=== PATIENT | male | born 1955 ===

== ENCOUNTER 2018-08-09 23:00 | Observation (INO) | payer MEDICAID ==
[2018-08-09 23:17] VITALS: BMI 27.1
--- NOTE | 2018-08-09 23:18 | ED PDOC ---
Arrival/HPI - General Historian: Patient - History of Present Illness Narrative History of Present Illness (Text): 08/09/18 23:43 Patient is a 65 yo male with a history of T2DM, arthritis, and gout who presents with vomiting and black stool. Patient states that he vomited 3 times today, most recently about 1 hour ago. He says the vomit was red but says it did not smell or taste like blood. He notes drinking a glass of wine and 2 red sodas prior to vomiting. He also reports 2 episodes of black stools today. He says that this occurred after eating [place] food with black sauce. Patient says he felt nauseated prior to vomiting and then felt better afterwards. He last took an NSAID (ibuprofen) for his arthritis 4 days ago). He reports having a colonoscopy in 2016 and is supposed to have another one in March 2019. He says he only drinks alcohol every few weekends. He now is feeling generalized weakness. He currently denies fever, headache, lightheadedness, nausea, abdominal pain, and rectal pain. He denies any sick contacts. Time/Duration: 4-6 hours Symptom Onset: Sudden <Kristin Zheng - Last Filed: 08/10/18 01:43> - Critical Care Critical Care Minutes: 30 minutes - History of Present Illness Activities at Onset: Light <Nestor Dumont - Last Filed: 08/10/18 02:28> - General Chief Complaint: GI Problem Time Seen by Provider: 08/09/18 23:05 Past Medical History - Provider Review Nursing Documentation Reviewed: Yes Primary Care Provider: Eleno Pringle <Kristin Zheng - Last Filed: 08/10/18 01:43> Family/Social History Family/Social History: Unknown Family HX Smoking Status: Never Smoked Hx Alcohol Use: Yes Frequency of alcohol use: Socially Hx Substance Use: No <Kristin Zheng - Last Filed: 08/10/18 01:43> - Physician Review Nursing Documentation Reviewed: Yes <Nestor Dumont - Last Filed: 08/10/18 02:28> Allergies/Home Meds <Kristin Zheng - Last Filed: 08/10/18 01:43> <Nestor Dumont - Last Filed: 08/10/18 02:28> Allergies/Adverse Reactions: Allergies No Known Allergies Allergy (Verified 08/09/18 23:17) Home Medications: Home Meds Medication Instructions Recorded Confirmed Unobtainable 08/09/18 08/09/18 Review of Systems - Review of Systems Constitutional: Other (weakness). absent: Fatigue, Fevers Eyes: absent: Vision Changes ENT: absent: Hearing Changes, Tinnitus Respiratory: absent: SOB, Cough Cardiovascular: absent: Chest Pain, Palpitations Gastrointestinal: Diarrhea, Nausea, Vomiting, Hematochezia. absent: Abdominal Pain, Constipation Genitourinary Male: absent: Dysuria, Hematuria Musculoskeletal: Arthralgias Skin: absent: Rash, Pruritis, Skin Lesions Neurological: absent: Headache, Dizziness, Focal Weakness Endocrine: absent: Diaphoresis Hemo/Lymphatic: absent: Adenopathy <Kristin Zheng - Last Filed: 08/10/18 01:43> - Physician Review All systems were reviewed & negative as marked: Yes <Nestor Dumont - Last Filed: 08/10/18 02:28> Physical Exam Vital Signs Reviewed: Yes Temperature: Afebrile Blood Pressure: Hypertensive Pulse: Tachycardic Respiratory Rate: Normal Appearance: Positive for: Non-Toxic, Comfortable Pain Distress: None Mental Status: Positive for: Alert and Oriented X 3 - Systems Exam Head: Present: Atraumatic, Normocephalic Pupils: Present: PERRL Extroacular Muscles: Present: EOMI Conjunctiva: Present: Normal Mouth: Present: Moist Mucous Membranes Pharnyx: Present: Normal Respiratory/Chest: Present: Clear to Auscultation, Good Air Exchange Cardiovascular: Present: Normal S1, S2, Tachycardic Abdomen: Present: Normal Bowel Sounds. No: Tenderness, Distention, Peritoneal Signs Rectal: Present: Occult Blood, Normal Rectal Tone. No: Rectal Tenderness, Gross Blood, Hemorrhoids, Fissures, Nodule/Mass/Lesions Back: Present: Normal Inspection Upper Extremity: Present: Normal Inspection Lower Extremity: Present: Normal Inspection Neurological: Present: GCS=15, CN II-XII Intact, Speech Normal, Motor Func Grossly Intact, Normal Sensory Function Skin: Present: Warm, Dry, Normal Color Psychiatric: Present: Alert, Oriented x 3, Normal Insight, Normal Concentration, Normal Affect, Normal Mood <Kristin Zheng - Last Filed: 08/10/18 01:43> Vital Signs Temp Pulse Resp BP Pulse Ox 08/10/18 00:50 132 H 18 123/58 L 98 08/09/18 23:27 98.1 F 107 H 20 136/84 95 08/09/18 23:19 102 H 18 155/60 H 97 <Nestor Dumont - Last Filed: 08/10/18 02:28> Medical Decision Making ED Course and Treatment: 08/09/18 23:43 FOBT positive 08/09/18 23:49 EKG, CXR Labs 08/10/18 00:49 Code sepsis- tachycardia, leukocytosis, elevated lactate 08/10/18 01:09 Spoke to hospitalist, Dr. Roca, who accepts patient for admission. - Lab Interpretations I have reviewed the lab results: Yes Interpretation: Abnormal lab values - RAD Interpretation Narrative RAD Interpretations (Text): 08/09/18 23:55 CXR- poor inspiratory effort, unremarkable Simplex Printer Installer: ED Physician - EKG Interpretation EKG Interpretation (Text): 08/09/18 23:27 sinus tachycardia Interpreted by ED Physician: Yes Type: 12 lead EKG Comparison: No previous EKG avail. - Medication Orders Current Medication Orders: 08/09/18 23:53 Discontinued Medications Ondansetron HCl (Zofran Inj) 4 mg IVP STAT STA Stop: 08/09/18 23:37 Last Admin: 08/09/18 23:48 Dose: 4 mg IVP Administration Document 08/09/18 23:48 IT (Rec: 08/09/18 23:[address] [facility] [id number]) Charges for Administration # of IVP Administrations 1 Pantoprazole Sodium (Protonix Inj) 40 mg IVP STAT STA Stop: 08/09/18 23:37 Last Admin: 08/09/18 23:48 Dose: 40 mg IVP Administration Document 08/09/18 23:48 IT (Rec: 08/09/18 23:[address] [facility] [id number]) Charges for Administration # of IVP Administrations 1 08/10/18 00:50 Sodium Chloride (Sodium Chloride 0.9%) 1,000 mls @ 999 mls/hr IV .Q1H1M STA Stop: 08/10/18 01:11 Sodium Chloride (Sodium Chloride 0.9%) 1,000 mls @ 999 mls/hr IV .Q1H1M STA Stop: 08/10/18 01:11 Last Admin: 08/10/18 00:21 Dose: 999 mls/hr eMAR Start Stop Document 08/10/18 00:21 IT (Rec: 08/10/18 00:[address] [facility] [id number]) Intravenous Solution Start Date 08/10/18 Start Time 00:21 Vancomycin HCl (Vancomycin 1gm) 1 gm in 250 mls @ 167 mls/hr IVPB STAT STA; Protocol Stop: 08/10/18 02:17 Piperacillin Sod/Tazobactam Sod (Zosyn 3.375 In Ns 100ml) 100 mls @ 200 mls/hr IVPB STAT STA; Protocol Stop: 08/10/18 01:17 Discontinued Medications Ondansetron HCl (Zofran Inj) 4 mg IVP STAT STA Stop: 08/09/18 23:37 Last Admin: 08/09/18 23:48 Dose: 4 mg IVP Administration Document 08/09/18 23:48 IT (Rec: 08/09/18 23:[address] [facility] [id number]) Charges for Administration # of IVP Administrations 1 Pantoprazole Sodium (Protonix Inj) 40 mg IVP STAT STA Stop: 08/09/18 23:37 Last Admin: 08/09/18 23:48 Dose: 40 mg IVP Administration Document 08/09/18 23:48 IT (Rec: 08/09/18 23:48 [facility] [id number] Charges for Administration # of IVP Administrations 1 <Kristin Zheng - Last Filed: 08/10/18 01:43> ED Course and Treatment: Patient Seen with Resident: In agreement with resident note which contains more details about the patient. Patient seen and evaluated with resident. Came up with plan and treatment together. 65 year old female presents complaining of vomiting and black stool. Plan: -- Labs -- EKG -- Chest X-ray -- Protonix Inj, IV Fluids, Vancomycin, Zofran Inj, Piperacillin/Tazobact -- Blood CUlture -- Stool Culture -- Urinalysis -- Reassess/dispo - Lab Interpretations Lab Results: pO2 46 mm/Hg (30-55) 08/10/18 00:25 VBG pH 7.38 (7.32-7.43) 08/10/18 00:25 VBG pCO2 48.0 (40-60) 08/10/18 00:25 VBG HCO3 28.4 mmol/l (21-28) H 08/10/18 00:25 VBG Total CO2 29.9 mmol.L (22-28) H 08/10/18 00:25 VBG O2 Sat (Calc) 82.1 % (40-65) H 08/10/18 00:25 VBG Base Excess 2.5 mmol/L (0.0-2.0) H 08/10/18 00:25 VBG Potassium 4.6 mmol/L (3.6-5.2) 08/10/18 00:25 Sodium 141.0 mmol/L (132-148) 08/10/18 00:25 Chloride 106.0 mmol/L (98-107) 08/10/18 00:25 Glucose 221 mg/dl (75-110) H 08/10/18 00:25 Lactate 2.7 mmol/L (0.7-2.1) H 08/10/18 00:25 FiO2 21.0 % 08/10/18 00:25 Crit Value Called To Tammie gonzalez 08/10/18 00:25 Crit Value Called By Helen 08/10/18 00:25 Blood Gas Notified Time 35 08/10/18 00:25 PT 14.3 SECONDS (9.4-12.5) H 08/09/18 23:27 INR 1.29 08/09/18 23:27 APTT 32.8 Seconds (26.9-38.3) 08/09/18 23:27 Troponin I < 0.01 ng/mL 08/10/18 00:13 Total Bilirubin 0.9 mg/dL (0.2-1.3) 08/09/18 23:27 AST 34 U/L (17-59) 08/09/18 23:27 ALT 29 U/L (7-56) 08/09/18 23:27 Alkaline Phosphatase 54 U/L (38-126) 08/09/18: Total Protein 7.6 g/dL (5.8-8.3) 08/09/18 23:27 Albumin 4.2 g/dL (3.0-4.8) 08/09/18: Globulin 3.4 gm/dL 08/09/18:27 Albumin/Globulin Ratio 1.3 (1.1-1.8) 08/09/18 23:27 Lipase 197 U/L (23-300) 08/09/18 23:27 Urine Color Yellow (YELLOW) 08/10/18 01:05 Urine Appearance Clear (CLEAR) 08/10/18 01:05 Urine pH 6.0 (4.7-8.0) 08/10/18 01:05 Ur Specific [place] 1.010 (1.005-1.035) 08/10/18 01:05 Urine Protein Negative mg/dL (<30 mg/dL) 08/10/18 01:05 Urine Glucose (UA) 100 mg/dL (NEGATIVE) H 08/10/18 01:05 Urine Ketones 15 mg/dL (NEGATIVE) H 08/10/18 01:05 Urine Blood Negative (NEGATIVE) 08/10/18 01:05 Urine Nitrate Negative (NEGATIVE) 08/10/18 01:05 Urine Bilirubin Negative (NEGATIVE) 08/10/18 01:05 Urine Urobilinogen 0.2 E.U./dL (<1 E.U./dL) 08/10/18 01:05 Ur Leukocyte Esterase Negative Erika/uL (NEGATIVE) 08/10/18 01:05 - RAD Interpretation Radiology Orders: 08/09/18 23:19 CXR [CHEST PORTABLE] [RAD] Stat - Medication Orders Current Medication Orders: Vancomycin HCl (Vancomycin 1gm) 1 gm in 250 mls @ 167 mls/hr IVPB STAT STA; Protocol Stop: 08/10/18 02:17 Last Admin: 08/10/18 01:37 Dose: 167 mls/hr eMAR Start Stop Document 08/10/18 01:37 IT (Rec: 08/10/18 01:[address] [facility] [id number]) Intravenous Solution Start Date 08/10/18 Start Time 01:37 Sodium Chloride (Sodium Chloride 0.9%) 1,000 mls @ 100 mls/hr IV .Q10H ILANA Discontinued Medications Sodium Chloride (Sodium Chloride 0.9%) 1,000 mls @ 999 mls/hr IV .Q1H1M STA Stop: 08/10/18 01:11 Last Admin: 08/10/18 01:04 Dose: 999 mls/hr eMAR Start Stop Document 08/10/18 01:04 IT (Rec: 08/10/18 01:04 IT [id number]) Intravenous Solution Start Date 08/10/18 Start Time 01:04 Sodium Chloride (Sodium Chloride 0.9%) 1,000 mls @ 999 mls/hr IV .Q1H1M STA Stop: 08/10/18 01:11 Last Admin: 08/10/18 00:21 Dose: 999 mls/hr eMAR Start Stop Document 08/10/18 00:21 IT (Rec: 08/10/18 00:21 IT [id number]) Intravenous Solution Start Date 08/10/18 Start Time 00:21 Piperacillin Sod/Tazobactam Sod (Zosyn 3.375 In Ns 100ml) 100 mls @ 200 mls/hr IVPB STAT STA; Protocol Stop: 08/10/18 01:17 Last Admin: 08/10/18 01:04 Dose: 200 mls/hr eMAR Start Stop Document 08/10/18 01:04 IT (Rec: 08/10/18 01:04 IT [id number]) Intravenous Solution Start Date 08/10/18 Start Time 01:04 Sodium Chloride (Sodium Chloride 0.9%) 500 mls @ 999 mls/hr IV .Q31M STA Stop: 08/10/18 01:43 Last Admin: 08/10/18 01:45 Dose: 999 mls/hr eMAR Start Stop Document 08/10/18 01:45 IT (Rec: 08/10/18 01:45 IT [id number]) Intravenous Solution Start Date 08/10/18 Start Time 01:45 Ondansetron HCl (Zofran Inj) 4 mg IVP STAT STA Stop: 08/09/18 23:37 Last Admin: 08/09/18 23:48 Dose: 4 mg IVP Administration Document 08/09/18 23:48 IT (Rec: 08/09/18 23:48 IT [id number]) Charges for Administration # of IVP Administrations 1 Pantoprazole Sodium (Protonix Inj) 40 mg IVP STAT STA Stop: 08/09/18 23:37 Last Admin: 08/09/18 23:48 Dose: 40 mg IVP Administration Document 08/09/18 23:48 IT (Rec: 08/09/18 23:48 IT [id number]) Charges for Administration # of IVP Administrations 1 Nestor Bermudez - Last Filed: 08/10/18 02:28> - PA / DRAFTING INSTRUCTOR / Resident Statement / has reviewed & agrees with the documentation as recorded. MD/ has examined the patient and agrees with the treatment plan. - Scribe Statement The provider has reviewed the documentation as recorded by the Alphonseibpritesh Mccullough Provider Scribe Attestation: All medical record entries made by the Scribe were at my direction and personally dictated by me. I have reviewed the chart and agree that the record accurately reflects my personal performance of the history, physical exam, medical decision making, and the department course for this patient. I have also personally directed, reviewed, and agree with the discharge instructions and disposition. <Nestor Dumont - Last Filed: 08/10/18 02:28> Disposition/Present on Arrival - Present on Arrival Any Indicators Present on Arrival: No History of DVT/PE: No History of Uncontrolled Diabetes: No Urinary Catheter: No History of Decub. Ulcer: No History Surgical Site Infection Following: None - Disposition Have Diagnosis and Disposition been Completed?: Yes Disposition Time: 01:06 Patient Plan: Observation, Telemetry <Kristin Zheng - Last Filed: 08/10/18 01:43> <Nestor Dumont - Last Filed: 08/10/18 02:28> - Disposition Diagnosis: Sepsis, GI bleed Disposition: HOSPITALIZED Patient Problems: Current Active Problems Problem Status Onset GI bleed Acute Sepsis Acute Condition: GUARDED
[2018-08-10] LABS: BASO # 0.05 K/mm3 (0.0-2.0); BASO % 0.4 % (0.0-3.0); EOS # 0.4 (0.0-0.7); EOS % 2.8 % (1.5-5.0); HEMOGLOBIN 13.1 g/dL (14.0-18.0); LYMPH # 1.9 (1.2-3.4); LYMPH % 15.3 % (22.0-35.0); MEAN CELL VOLUME 90.9 fl (80.0-105.0); MEAN CORPUSCULAR HEMOGLOBIN 29.9 pg (25.0-35.0); MEAN CORPUSCULAR HGB CONC 32.9 g/dl (31.0-37.0); MEAN PLATELET VOLUME 11.8 fl (7.0-11.0); MONO # 0.5 (0.1-0.6); MONO % 4.2 % (1.0-6.0); RBC 4.38 10^6/uL (3.5-6.1); RED CELL DISTRIBUTION WIDTH 14.5 % (11.5-14.5); WHITE BLOOD COUNT 12.5 10^3/uL (4.5-11.0)
[2018-08-10 00:04] LABS: INR 1.29; PARTIAL THROMBOPLASTIN TIME 32.8 Seconds (26.9-38.3); PROTHROMBIN TIME 14.3 SECONDS (9.4-12.5)
[2018-08-10 00:05] LABS: ALB/GLOB RATIO 1.3 (1.1-1.8); ALBUMIN 4.2 g/dL (3.0-4.8); ALT/SGPT 29 U/L (7-56); AST/SGOT 34 U/L (17-59); BLOOD UREA NITROGEN 34 mg/dL (7-21); CALCIUM 9.6 mg/dL (8.4-10.5); GFR NON-AFRICAN AMERICAN > 60; LIPASE 197 U/L (23-300)
[2018-08-10] MEDS ORDERED: Sodium Chloride 0.9% 1,000 ML IV STA ×2 (00:11)
[2018-08-10 00:39] LABS: VENOUS BLOOD GAS BASE EXCESS 2.5 mmol/L (0.0-2.0); VENOUS BLOOD GAS PO2 46 mm/Hg (30-55); VENOUS BLOOD PH 7.38 (7.32-7.43)
[2018-08-10] MEDS ORDERED: Vancomycin 1gm in NS 250ml 1 GM/250 ML BAG IVPB STA (00:48)
[2018-08-10] MEDS ORDERED: Piperacillin/Tazobact 3.375 gm 100 ML IVPB STA (00:48)
[2018-08-10 00:51] LABS: TROPONIN I < 0.01 ng/mL
[2018-08-10] MEDS ORDERED: Sodium Chloride 0.9% 500 ML IV STA (01:13)
[2018-08-10] MEDS ORDERED: Sodium Chloride 0.9% 1,000 ML IV SCH ×2 (01:15→10:07)
[2018-08-10 01:35] LABS: URINE APPEARANCE CLEAR (CLEAR); URINE BILIRUBIN NEGATIVE (NEGATIVE); URINE BLOOD NEGATIVE (NEGATIVE); URINE COLOR YELLOW (YELLOW); URINE GLUCOSE (UA) 100 mg/dL (NEGATIVE); URINE LEUKOCYTE ESTERASE NEGATIVE Leu/uL (NEGATIVE); URINE PROTEIN NEGATIVE mg/dL (<30 mg/dL); URINE UROBILINOGEN 0.2 E.U./dL (<1 E.U./dL)
--- NOTE | 2018-08-10 02:02 | CP.PCM.HP ---
<Flor Emery - Last Filed: 08/10/18 06:33> History of Present Illness - History of Present Illness History of Present Illness: Flor Emery, PGY1 Hospital H&P This is a 62 year old male with PMH of arthritis, gout and type II DM presenting to the hospital for 2 episodes of vomiting and black tarry stool today afternoon. Patient states he was drinking soda and wine, and shortly after ret urning home he had a black tarry bowel movement. He then proceeded to self induce vomit after which vomited twice. He denies every having a black tarry bowel movement in the past. He states his bowel movements were regular and normal prior to earlier episode. He denies any other complaints at this time. He reports having a colonoscopy in 2017 and is unsure of the results. He denies CP, SOB, fevers, nausea, back pain, abdominal pain, diarrhea, constipation, numbness, tingling, weakness, chills, headaches, dizziness, recent travel, recent sickness, recent trauma, and recent lifestyle change including weight loss, medication change and diet. 12 point ROS noted here, otherwise unremarkable. PMD: Delvis Mendoza SH: drinks occasional alcohol, denies smoking and drug use Sx: denies previous surgeries FH: father had 2 CVA's All: NKDA Meds: indomethacin prn, diclofenic prn, metformin 500mg when fingerstick glucose elevated Present on Admission - Present on Admission Any Indicators Present on Admission: No Past Patient History - Past Social History Smoking Status: Never Smoked - ENDOCRINE/METABOLIC Hx Diabetes Mellitus Type 2: Yes - PSYCHIATRIC Hx Substance Use: No Meds Allergies/Adverse Reactions: Allergies Allergy/AdvReac Type Severity Reaction Status Date / Time No Known Allergies Allergy Verified 08/09/18 23:17 Physical Exam - Constitutional Appears: Non-toxic, No Acute Distress - Head Exam Head Exam: ATRAUMATIC, NORMAL INSPECTION - Eye Exam Eye Exam: EOMI Pupil Exam: PERRL - ENT Exam ENT Exam: Mucous Membranes Dry - Respiratory Exam Respiratory Exam: Clear to Auscultation Bilateral. absent: Accessory Muscle Use, Wheezes, Respiratory Distress - Cardiovascular Exam Cardiovascular Exam: Tachycardia, REGULAR RHYTHM, +S1, +S2 - GI/Abdominal Exam GI & Abdominal Exam: Normal Bowel Sounds, Soft. absent: Firm, Guarding, Rebound, Rigid, Tenderness - Extremities Exam Extremities exam: Positive for: normal inspection, pedal pulses present. Negati ve for: calf tenderness, tenderness - Back Exam Back exam: NORMAL INSPECTION - Neurological Exam Neurological exam: Alert, CN II-XII Intact, Oriented x3 - Skin Skin Exam: Normal Color, Warm Results - Vital Signs Recent Vital Signs: Last Vital Signs Temp 98.1 F 08/09/18 23:27 Pulse 132 H 08/10/18 00:50 Resp 18 08/10/18 00:50 BP 123/58 L 08/10/18 00:50 Pulse Ox 98 08/10/18 00:50 - Labs Result Diagrams: 08/09/18 23:27 08/10/18 05:00 Labs: Laboratory Results - last 24 hr 08/09/18 08/09/18 08/09/18 23:27 23:27 23:27 WBC 12.5 H RBC 4.38 Hgb 13.1 L Hct 39.8 L MCV 90.9 MCH 29.9 MCHC 32.9 RDW 14.5 Plt Count 192 MPV 11.8 H Neut % (Auto) 77.3 H Lymph % (Auto) 15.3 L Beaver % (Auto) 4.2 Eos % (Auto) 2.8 Baso % (Auto) 0.4 Lymph # (Auto) 1.9 Beaver # (Auto) 0.5 Eos # (Auto) 0.4 Baso # (Auto) 0.05 Absolute Neuts (auto) 9.68 H PT 14.3 H INR 1.29 APTT 32.8 pO2 VBG pH VBG pCO2 VBG HCO3 VBG Total CO2 VBG O2 Sat (Calc) VBG Base Excess VBG Potassium Glucose Lactate FiO2 Crit Value Called To Crit Value Called By Blood Gas Notified Time Sodium 142 Potassium 5.0 Chloride 106 Carbon Dioxide 26 Anion Gap 15 BUN 34 H Creatinine 0.7 L Est GFR ( Amer) > 60 Est GFR (Non-Af Amer) > 60 Random Glucose 260 H Calcium 9.6 Phosphorus 2.7 Magnesium 1.6 L Total Bilirubin 0.9 AST 34 ALT 29 Alkaline Phosphatase 54 Lactate Dehydrogenase Total Creatine Kinase Troponin I Total Protein 7.6 Albumin 4.2 Globulin 3.4 Albumin/Globulin Ratio 1.3 Lipase 197 Venous Blood Potassium Urine Color Urine Appearance Urine pH Ur Specific Lenore Urine Protein Urine Glucose (UA) Urine Ketones Urine Blood Urine Nitrate Urine Bilirubin Urine Urobilinogen Ur Leukocyte Esterase Blood Type Antibody Screen BBK History Checked 08/09/18 08/10/18 08/10/18 23:48 00:13 00:25 WBC RBC Hgb Hct MCV MCH MCHC RDW Plt Count MPV Neut % (Auto) Lymph % (Auto) Beaver % (Auto) Eos % (Auto) Baso % (Auto) Lymph # (Auto) [place] # (Auto) Eos # (Auto) Baso # (Auto) Absolute Neuts (auto) PT INR APTT pO2 46 VBG pH 7.38 VBG pCO2 48.0 VBG HCO3 28.4 H VBG Total CO2 29.9 H VBG O2 Sat (Calc) 82.1 H VBG Base Excess 2.5 H VBG Potassium 4.6 Glucose 221 H Lactate 2.7 H FiO2 21.0 Crit Value Called To Iqsa rn Crit Value Called By Djd Blood Gas Notified Time 35 Sodium 141.0 Potassium Chloride 106.0 Carbon Dioxide Anion Gap BUN Creatinine Est GFR ( Amer) Est GFR (Non-Af Amer) Random Glucose Calcium Phosphorus Magnesium Total Bilirubin AST ALT Alkaline Phosphatase Lactate Dehydrogenase 531 Total Creatine Kinase 142 Troponin I < 0.01 Total Protein Albumin Globulin Albumin/Globulin Ratio Lipase Venous Blood Potassium 4.6 Urine Color Urine Appearance Urine pH Ur Specific Len[place] Urine Protein Urine Glucose (UA) Urine Ketones Urine Blood Urine Nitrate Urine Bilirubin Urine Urobilinogen Ur Leukocyte Esterase Blood Type A POSITIVE Antibody Screen Negative BBK History Checked No verified bt 08/10/18 01:05 WBC RBC Hgb Hct MCV MCH MCHC RDW Plt Count MPV Neut % (Auto) Lymph % (Auto) Beaver % (Auto) Eos % (Auto) Baso % (Auto) Lymph # (Auto) [place] # (Auto) Eos # (Auto) Baso # (Auto) Absolute Neuts (auto) PT INR APTT pO2 VBG pH VBG pCO2 VBG HCO3 VBG Total CO2 VBG O2 Sat (Calc) VBG Base Excess VBG Potassium Glucose Lactate FiO2 Crit Value Called To Crit Value Called By Blood Gas Notified Time Sodium Potassium Chloride Carbon Dioxide Anion Gap BUN Creatinine Est GFR ( Amer) Est GFR (Non-Af Amer) Random Glucose Calcium Phosphorus Magnesium Total Bilirubin AST ALT Alkaline Phosphatase Lactate Dehydrogenase Total Creatine Kinase Troponin I Total Protein Albumin Globulin Albumin/Globulin Ratio Lipase Venous Blood Potassium Urine Color Yellow Urine Appearance Clear Urine pH 6.0 Ur Specific Len[place] 1.010 Urine Protein Negative Urine Glucose (UA) 100 H Urine Ketones 15 H Urine Blood Negative Urine Nitrate Negative Urine Bilirubin Negative Urine Urobilinogen 0.2 Ur Leukocyte Esterase Negative Blood Type Antibody Screen BBK History Checked Assessment & Plan - Assessment and Plan (Free Text) Assessment: This is a 62 year old male with PMH of arthritis, gout and type II DM presenting to the hospital for 2 episodes of vomiting and black tarry stool. Plan: SIRS with unknown source -tachycardic, elevated WBC count -lactate on presentation is 2.7 -continue vancomycin, zosyn -blood culture, urine culture, stool culture pending -CXR pending -guaiac positive in the ED, Hg is 13.1; monitor -H/H q4 -GI on consult, Dr. Bolaños -IV protonix q12 Hx of DM2 -ISS - low -A1c pending Hx of arthritis -symptoms currently controlled PPX -protonix -SCD -NPO Patient seen and case discussed with attending, Dr. Roca. <Moshe Roca - Last Filed: 08/11/18 02:32> Results - Vital Signs Recent Vital Signs: Last Vital Signs Temp 97.8 F 08/10/18 12:00 Pulse 120 H 08/10/18 12:00 Resp 20 08/10/18 12:00 BP 111/71 08/10/18 12:00 Pulse Ox 95 08/10/18 06:00 - Labs Result Diagrams: 08/10/18 12:15 08/10/18 05:00 Labs: Laboratory Results - last 24 hr 08/10/18 08/10/18 08/10/18 00:30 04:00 05:00 WBC RBC Hgb Hct MCV MCH MCHC RDW Plt Count MPV Neut % (Auto) Lymph % (Auto) Beaver % (Auto) Eos % (Auto) Baso % (Auto) Lymph # (Auto) [place] # (Auto) Eos # (Auto) Baso # (Auto) Absolute Neuts (auto) pO2 58 H VBG pH 7.39 VBG pCO2 45.0 VBG HCO3 27.2 VBG Total CO2 28.6 H VBG O2 Sat (Calc) 90.5 H VBG Base Excess 1.7 VBG Potassium 4.5 Sodium 142.0 142 Chloride 113.0 H 110 H Glucose 184 H Lactate 1.4 FiO2 21.0 Potassium 4.5 Carbon Dioxide 24 Anion Gap 13 BUN 32 H Creatinine 0.7 L Est GFR ( Amer) > 60 Est GFR (Non-Af Amer) > 60 POC Glucose (mg/dL) Random Glucose 167 H Hemoglobin A1c Calcium 8.3 L Phosphorus 2.6 Magnesium 1.6 L Total Bilirubin 0.5 AST 23 ALT 29 Alkaline Phosphatase 43 Total Protein 5.9 Albumin 3.2 Globulin 2.7 Albumin/Globulin Ratio 1.2 Procalcitonin Venous Blood Potassium 4.5 Blood Type Confirm A POSITIVE 08/10/18 08/10/18 08/10/18 05:00 06:20 07:00 WBC 9.3 D RBC 3.66 Hgb 11.0 L D Hct 32.6 L MCV 89.1 MCH 30.1 MCHC 33.7 RDW 14.5 Plt Count 157 MPV 10.9 Neut % (Auto) 55.8 Lymph % (Auto) 30.7 Beaver % (Auto) 8.8 H Eos % (Auto) 4.4 Baso % (Auto) 0.3 Lymph # (Auto) 2.9 Beaver # (Auto) 0.8 H Eos # (Auto) 0.4 Baso # (Auto) 0.03 Absolute Neuts (auto) 5.21 pO2 VBG pH VBG pCO2 VBG HCO3 VBG Total CO2 VBG O2 Sat (Calc) VBG Base Excess VBG Potassium Sodium Chloride Glucose Lactate FiO2 Potassium Carbon Dioxide Anion Gap BUN Creatinine Est GFR ( Amer) Est GFR (Non-Af Amer) POC Glucose (mg/dL) Random Glucose Hemoglobin A1c 7.2 H Calcium Phosphorus Magnesium Total Bilirubin AST ALT Alkaline Phosphatase Total Protein Albumin Globulin Albumin/Globulin Ratio Procalcitonin < 0.05 L Venous Blood Potassium Blood Type Confirm 08/10/18 08/10/18 08/10/18 07:48 10:47 12:15 WBC RBC Hgb 11.1 L Hct 34.0 L MCV MCH MCHC RDW Plt Count MPV Neut % (Auto) Lymph % (Auto) [place]aver % (Auto) Eos % (Auto) Baso % (Auto) Lymph # (Auto) [place] # (Auto) Eos # (Auto) Baso # (Auto) Absolute Neuts (auto) pO2 VBG pH VBG pCO2 VBG HCO3 VBG Total CO2 VBG O2 Sat (Calc) VBG Base Excess VBG Potassium Sodium Chloride Glucose Lactate FiO2 Potassium Carbon Dioxide Anion Gap BUN Creatinine Est GFR ( Amer) Est GFR (Non-Af Amer) POC Glucose (mg/dL) 152 H 205 H Random Glucose Hemoglobin A1c Calcium Phosphorus Magnesium Total Bilirubin AST ALT Alkaline Phosphatase Total Protein Albumin Globulin Albumin/Globulin Ratio Procalcitonin Venous Blood Potassium Blood Type Confirm Attending/Attestation - Attestation I have personally seen and examined this patient.: Yes I have fully participated in the care of the patient.: Yes I have reviewed all pertinent clinical information: Yes
[2018-08-10 04:14] LABS: VENOUS BLOOD GAS BASE EXCESS 1.7 mmol/L (0.0-2.0); VENOUS BLOOD GAS PO2 58 mm/Hg (30-55); VENOUS BLOOD PH 7.39 (7.32-7.43)
--- NOTE | 2018-08-10 04:39 | PCM.SEPTIC ---
Sepsis Progress Note - Reassessment Type Date of Evaluation: 08/10/18 Time of Evaluation: 04:38 Reassessment Type: Non-invasive reassessment - Non Invasive Reassessment Were the most recent vital sign reviewed: Yes Vital Sign (Latest): Temp Pulse Resp BP Pulse Ox 98.2 F 128 H 18 122/75 98 08/10/18 02:12 08/10/18 02:12 08/10/18 03:14 08/10/18 02:12 08/10/18 02:12 Cardiovascular: Yes: Tachycardia Respiratory: Yes: Normal Breath Sounds. No: Wheezing, Respiratory Distress Capillary Refill: Normal (Less than 2 sec) Pulses: Normal Radial, Normal Dorsalis Pedis Skin: Normal Color, Warm <Flor Emery - Last Filed: 08/10/18 04:38> - Non Invasive Reassessment Vital Sign (Latest): Temp Pulse Resp BP Pulse Ox 98.2 F 128 H 18 122/75 98 08/10/18 02:12 08/10/18 02:12 08/10/18 03:14 08/10/18 02:12 08/10/18 02:12 <Moshe Roca - Last Filed: 08/10/18 05:11> Attending/Attestation - Attestation I have personally seen and examined this patient.: Yes I have fully participated in the care of the patient.: Yes I have reviewed all pertinent clinical information, including history, physical exam and plan: Yes <Moshe Roca - Last Filed: 08/10/18 05:11>
[2018-08-10 05:52] LABS: ALT/SGPT 29 U/L (7-56); GFR NON-AFRICAN AMERICAN > 60
[2018-08-10 06:28] LABS: BASO # 0.03 K/mm3 (0.0-2.0); BASO % 0.3 % (0.0-3.0); EOS # 0.4 (0.0-0.7); EOS % 4.4 % (1.5-5.0); LYMPH # 2.9 (1.2-3.4); LYMPH % 30.7 % (22.0-35.0); MEAN CELL VOLUME 89.1 fl (80.0-105.0); MEAN CORPUSCULAR HEMOGLOBIN 30.1 pg (25.0-35.0); MEAN CORPUSCULAR HGB CONC 33.7 g/dl (31.0-37.0); MEAN PLATELET VOLUME 10.9 fl (7.0-11.0); MONO # 0.8 (0.1-0.6); MONO % 8.8 % (1.0-6.0); RBC 3.66 10^6/uL (3.5-6.1); RED CELL DISTRIBUTION WIDTH 14.5 % (11.5-14.5); WHITE BLOOD COUNT 9.3 10^3/uL (4.5-11.0)
[2018-08-10 06:44] VITALS: O2SAT 95
[2018-08-10 07:02] LABS: BLOOD UREA NITROGEN 32 mg/dL (7-21)
[2018-08-10 07:03] LABS: ALBUMIN 3.2 g/dL (3.0-4.8); CALCIUM 8.3 mg/dL (8.4-10.5)
[2018-08-10 07:04] LABS: AST/SGOT 23 U/L (17-59)
[2018-08-10] MEDS ORDERED: Magnesium Sulfate 2 gm/50 ml 2 GM/50 ML BAG IVPB ONE (07:15)
[2018-08-10 07:41] LABS: ALB/GLOB RATIO 1.2 (1.1-1.8)
[2018-08-10] MEDS: Insulin Reg-LOW-Coverage SC SCH ×2 (08:14→12:00)
[2018-08-10] MEDS ORDERED: Piperacillin/Tazobact 3.375 gm 100 ML IVPB SCH (10:00)
[2018-08-10] MEDS ORDERED: Vancomycin 1gm in NS 250ml 1 GM/250 ML BAG IVPB SCH (10:00)
[2018-08-10] MEDS ORDERED: Barium Sulfate Susp 2.1% w/v, 2.0% w/w 450 mL Bottle PO ONE (10:14)
--- NOTE | 2018-08-10 10:45 | CARD ---
APPROVED REPORT Date of service: 08/09/2018 EKG Measurement Heart [id number] <Conclusion> Sinus tachycardia Otherwise normal ECG
--- NOTE | 2018-08-10 11:15 | RAD ---
Date of service: 08/09/2018 HISTORY: vomiting COMPARISON: No prior. TECHNIQUE: 1 view obtained. FINDINGS: LUNGS: Rinse of pulmonary vasculature may be secondary to AP technique and/or pulmonary vascular congestion. Bibasilar atelectasis. PLEURA: No significant pleural effusion identified, no pneumothorax apparent. CARDIOVASCULAR: Aortic atherosclerotic calcifications. Cardiomediastinal silhouette within normal limits. OSSEOUS STRUCTURES: Spinal degenerative changes. VISUALIZED UPPER ABDOMEN: Normal. OTHER FINDINGS: None. IMPRESSION: No active disease.
[2018-08-10] MEDS ORDERED: POLYETHYLENE GLYCOL 3350 17 GM/Dose PACKET PO SCH (12:00)
[2018-08-10 13:03] LABS: HEMOGLOBIN 11.1 g/dL (14.0-18.0)
--- NOTE | 2018-08-10 13:10 | CP.PCM.CON ---
<Cody Hubbard - Last Filed: 08/10/18 13:06> History of Present Illness - History of Present Illness History of Present Illness: PGY 4 G.I. fellow consult note 62-year-old male with a past medical history of type two diabetes, arthritis, gout presenting with emesis and dark stool. He states he had two episodes of red emesis on 08/09/18 that he attributed to his Red wine consumption and red soda consumption. He reported two episodes of black stool that he also related to consumption of dark [place] food sauce. He denied any abd pain, fevers, chills, chest pain, shortness of breath, weight loss, dysphasia. He reports recent ibuprofen and NSAID use a few days ago. Normally, he states he has formed brown bowel movements, but admits that he has been constipated somewhat lately and has noticed some blood on the toilet paper when he wipes. He states he had a colonoscopy back in 2016 (few polyps and int hemorrhoids) with instructions to repeat in 2019. Since presentation, he has had no further symtoms and states that he feels back to his baseline. 12 point review of systems negative other than stated above Medical history: see above Surgical history: colonoscopy as above; Denied any other surgical history Medications: reviewed in chart Family history: CVA Social history: occasional alcohol use, denied x2 Allergies: NKDA Past Patient History - Past Social History Smoking Status: Never Smoked - ENDOCRINE/METABOLIC Hx Diabetes Mellitus Type 2: Yes - MUSCULOSKELETAL/RHEUMATOLOGICAL Hx Falls: No - PSYCHIATRIC Hx Substance Use: No Meds Home Medications: Home Medication List Medication Instructions Recorded Confirmed Type Amoxicillin/Clavulanate [Augmentin 1 tab PO BID 7 Days #14 tab 08/10/18 Rx 875 MG-125 MG] Pantoprazole [Protonix] 40 mg PO DAILY #30 ect 08/10/18 Rx Polyethylene Glycol 3350 [Miralax] 17 gm PO DAILY PRN 14 Days #7 ml 08/10/18 Rx Allergies/Adverse Reactions: Allergies Allergy/AdvReac Type Severity Reaction Status Date / Time No Known Allergies Allergy Verified 08/09/18 23:17 - Medications Medications: Current Medications Sodium Chloride (Sodium Chloride 0.9%) 1,000 mls @ 150 mls/hr IV .[id number] [facility] Last Admin: 08/10/18 12:02 Dose: 150 mls/hr Insulin Human Regular (Humulin R Low) 0 units SC ACHS [facility]; Protocol Last Admin: 08/10/18 12:00 Dose: 2 units Pantoprazole Sodium (Protonix Ec Tab) 40 mg PO 0600 [facility] Polyethylene Glycol (Miralax) 17 gm PO DAILY [facility] Last Admin: 08/10/18 12:04 Dose: 17 gm Physical Exam - Constitutional Appears: Well, No Acute Distress - Head Exam Head Exam: ATRAUMATIC, NORMAL INSPECTION - Eye Exam Eye Exam: EOMI. absent: Scleral icterus - ENT Exam ENT Exam: Mucous Membranes Moist. absent: Mucous Membranes Dry - Respiratory Exam Respiratory Exam: NORMAL BREATHING PATTERN. absent: Accessory Muscle Use - Cardiovascular Exam Cardiovascular Exam: REGULAR RHYTHM, RRR - GI/Abdominal Exam GI & Abdominal Exam: Normal Bowel Sounds, Soft. absent: Bruit, Diminished Bowel Sounds, Distended, Firm, Guarding, Hernia, Mass, Organomegaly, Pulsatile Mass, Rigid, Tenderness - Extremities Exam Extremities exam: Positive for: normal inspection. Negative for: pedal edema - Neurological Exam Neurological exam: Alert, Oriented x3 - Psychiatric Exam Psychiatric exam: Normal Affect, Normal Mood - Skin Skin Exam: Normal Color, Warm Results - Vital Signs Recent Vital Signs: Last Vital Signs Temp 97 F L 08/10/18 06:00 Pulse 116 H 08/10/18 06:00 Resp 18 08/10/18 06:00 BP 128/78 08/10/18 06:00 Pulse Ox 95 08/10/18 06:00 - Labs Result Diagrams: 08/10/18 06:20 08/10/18 05:00 Labs: Laboratory Results - last 24 hr 08/09/18 08/09/18 08/09/18 23:27 23:27 23:27 WBC 12.5 H RBC 4.38 Hgb 13.1 L Hct 39.8 L MCV 90.9 MCH 29.9 MCHC 32.9 RDW 14.5 Plt Count 192 MPV 11.8 H Neut % (Auto) 77.3 H Lymph % (Auto) 15.3 L [place] % (Auto) 4.2 Eos % (Auto) 2.8 Baso % (Auto) 0.4 Lymph # (Auto) 1.9 [place] # (Auto) 0.5 Eos # (Auto) 0.4 Baso # (Auto) 0.05 Absolute Neuts (auto) 9.68 H PT 14.3 H INR 1.29 APTT 32.8 pO2 VBG pH VBG pCO2 VBG HCO3 VBG Total CO2 VBG O2 Sat (Calc) VBG Base Excess VBG Potassium Glucose Lactate FiO2 Crit Value Called To Crit Value Called By Blood Gas Notified Time Sodium 142 Potassium 5.0 Chloride 106 Carbon Dioxide 26 Anion Gap 15 BUN 34 H Creatinine 0.7 L Est GFR ( Amer) > 60 Est GFR (Non-Af Amer) > 60 POC Glucose (mg/dL) Random Glucose 260 H Hemoglobin A1c Calcium 9.6 Phosphorus 2.7 Magnesium 1.6 L Total Bilirubin 0.9 AST 34 ALT 29 Alkaline Phosphatase 54 Lactate Dehydrogenase Total Creatine Kinase Troponin I Total Protein 7.6 Albumin 4.2 Globulin 3.4 Albumin/Globulin Ratio 1.3 Lipase 197 Venous Blood Potassium Urine Color Urine Appearance Urine pH Ur Specific [place] Urine Protein Urine Glucose (UA) Urine Ketones Urine Blood Urine Nitrate Urine Bilirubin Urine Urobilinogen Ur Leukocyte Esterase Blood Type Blood Type Confirm Antibody Screen BBK History Checked 08/09/18 08/10/18 08/10/18 23:48 00:13 00:25 WBC RBC Hgb Hct MCV MCH MCHC RDW Plt Count MPV Neut % (Auto) Lymph % (Auto) [place] % (Auto) Eos % (Auto) Baso % (Auto) Lymph # (Auto) [place] # (Auto) Eos # (Auto) Baso # (Auto) Absolute Neuts (auto) PT INR APTT pO2 46 VBG pH 7.38 VBG pCO2 48.0 VBG HCO3 28.4 H VBG Total CO2 29.9 H VBG O2 Sat (Calc) 82.1 H VBG Base Excess 2.5 H VBG Potassium 4.6 Glucose 221 H Lactate 2.7 H FiO2 21.0 Crit Value Called To Iqsa rn Crit Value Called By Tejinderd Blood Gas Notified Time 35 Sodium 141.0 Potassium Chloride 106.0 Carbon Dioxide Anion Gap BUN Creatinine Est GFR ( Amer) Est GFR (Non-Af Amer) POC Glucose (mg/dL) Random Glucose Hemoglobin A1c Calcium Phosphorus Magnesium Total Bilirubin AST ALT Alkaline Phosphatase Lactate Dehydrogenase 531 Total Creatine Kinase 142 Troponin I < 0.01 Total Protein Albumin Globulin Albumin/Globulin Ratio Lipase Venous Blood Potassium 4.6 Urine Color Urine Appearance Urine pH Ur Specific [place] Urine Protein Urine Glucose (UA) Urine Ketones Urine Blood Urine Nitrate Urine Bilirubin Urine Urobilinogen Ur Leukocyte Esterase Blood Type A POSITIVE Blood Type Confirm Antibody Screen Negative BBK History Checked No verified bt 08/10/18 08/10/18 08/10/18 00:30 01:05 04:00 WBC RBC Hgb Hct MCV MCH MCHC RDW Plt Count MPV Neut % (Auto) Lymph % (Auto) [place] % (Auto) Eos % (Auto) Baso % (Auto) Lymph # (Auto) [place] # (Auto) Eos # (Auto) Baso # (Auto) Absolute Neuts (auto) PT INR APTT pO2 58 H VBG pH 7.39 VBG pCO2 45.0 VBG HCO3 27.2 VBG Total CO2 28.6 H VBG O2 Sat (Calc) 90.5 H VBG Base Excess 1.7 VBG Potassium 4.5 Glucose 184 H Lactate 1.4 FiO2 21.0 Crit Value Called To Crit Value Called By Blood Gas Notified Time Sodium 142.0 Potassium Chloride 113.0 H Carbon Dioxide Anion Gap BUN Creatinine Est GFR ( Amer) Est GFR (Non-Af Amer) POC Glucose (mg/dL) Random Glucose Hemoglobin A1c Calcium Phosphorus Magnesium Total Bilirubin AST ALT Alkaline Phosphatase Lactate Dehydrogenase Total Creatine Kinase Troponin I Total Protein Albumin Globulin Albumin/Globulin Ratio Lipase Venous Blood Potassium 4.5 Urine Color Yellow Urine Appearance Clear Urine pH 6.0 Ur Specific [place] 1.010 Urine Protein Negative Urine Glucose (UA) 100 H Urine Ketones 15 H Urine Blood Negative Urine Nitrate Negative Urine Bilirubin Negative Urine Urobilinogen 0.2 Ur Leukocyte Esterase Negative Blood Type Blood Type Confirm A POSITIVE Antibody Screen BBK History Checked 08/10/18 08/10/18 08/10/18 05:00 05:00 06:20 WBC 9.3 D RBC 3.66 Hgb 11.0 L D Hct 32.6 L MCV 89.1 MCH 30.1 MCHC 33.7 RDW 14.5 Plt Count 157 MPV 10.9 Neut % (Auto) 55.8 Lymph % (Auto) 30.7 [place] % (Auto) 8.8 H Eos % (Auto) 4.4 Baso % (Auto) 0.3 Lymph # (Auto) 2.9 [place] # (Auto) 0.8 H Eos # (Auto) 0.4 Baso # (Auto) 0.03 Absolute Neuts (auto) 5.21 PT INR APTT pO2 VBG pH VBG pCO2 VBG HCO3 VBG Total CO2 VBG O2 Sat (Calc) VBG Base Excess VBG Potassium Glucose Lactate FiO2 Crit Value Called To Crit Value Called By Blood Gas Notified Time Sodium 142 Potassium 4.5 Chloride 110 H Carbon Dioxide 24 Anion Gap 13 BUN 32 H Creatinine 0.7 L Est GFR ( Amer) > 60 Est GFR (Non-Af Amer) > 60 POC Glucose (mg/dL) Random Glucose 167 H Hemoglobin A1c 7.2 H Calcium 8.3 L Phosphorus 2.6 Magnesium 1.6 L Total Bilirubin 0.5 AST 23 ALT 29 Alkaline Phosphatase 43 Lactate Dehydrogenase Total Creatine Kinase Troponin I Total Protein 5.9 Albumin 3.2 Globulin 2.7 Albumin/Globulin Ratio 1.2 Lipase Venous Blood Potassium Urine Color Urine Appearance Urine pH Ur Specific [place] Urine Protein Urine Glucose (UA) Urine Ketones Urine Blood Urine Nitrate Urine Bilirubin Urine Urobilinogen Ur Leukocyte Esterase Blood Type Blood Type Confirm Antibody Screen BBK History Checked 08/10/18 08/10/18 07:48 10:47 WBC RBC Hgb Hct MCV MCH MCHC RDW Plt Count MPV Neut % (Auto) Lymph % (Auto) [place] % (Auto) Eos % (Auto) Baso % (Auto) Lymph # (Auto) [place] # (Auto) Eos # (Auto) Baso # (Auto) Absolute Neuts (auto) PT INR APTT pO2 VBG pH VBG pCO2 VBG HCO3 VBG Total CO2 VBG O2 Sat (Calc) VBG Base Excess VBG Potassium Glucose Lactate FiO2 Crit Value Called To Crit Value Called By Blood Gas Notified Time Sodium Potassium Chloride Carbon Dioxide Anion Gap BUN Creatinine Est GFR ( Amer) Est GFR (Non-Af Amer) POC Glucose (mg/dL) 152 H 205 H Random Glucose Hemoglobin A1c Calcium Phosphorus Magnesium Total Bilirubin AST ALT Alkaline Phosphatase Lactate Dehydrogenase Total Creatine Kinase Troponin I Total Protein Albumin Globulin Albumin/Globulin Ratio Lipase Venous Blood Potassium Urine Color Urine Appearance Urine pH Ur Specific [place] Urine Protein Urine Glucose (UA) Urine Ketones Urine Blood Urine Nitrate Urine Bilirubin Urine Urobilinogen Ur Leukocyte Esterase Blood Type Blood Type Confirm Antibody Screen BBK History Checked Assessment & Plan - Assessment and Plan (Free Text) Assessment: 62-year-old male with a past medical history of type two diabetes, arthritis, gout presenting with emesis and dark stool. # Emesis, dark stool: Unclear if actually related to blood or PO intake. Hgb down some since admission, but suspect component of dilution. No further episodes since admission. # H/o colon polyps # Int Hemorrhoids Plan: - DC IV PPI, switch to PO Pantoprazole 40 mg QD - F/u CT scan --- If unremarkable, anticipate DC later today - Miralax - OK for diet post CT from GI standpoint Pt seen and examined with Dr. Anderson. Please see attestation for further recs/changes. <Barbara Anderson - Last Filed: 08/10/18 15:39> Meds - Medications Medications: Current Medications Sodium Chloride (Sodium Chloride 0.9%) 1,000 mls @ 150 mls/hr IV .Q6H40M [facility] Last Admin: 08/10/18 12:02 Dose: 150 mls/hr Insulin Human Regular (Humulin R Low) 0 units SC ACHS [facility]; Protocol Last Admin: 08/10/18 12:00 Dose: 2 units Pantoprazole Sodium (Protonix Ec Tab) 40 mg PO 0600 [facility] Polyethylene Glycol (Miralax) 17 gm PO DAILY [facility] Last Admin: 08/10/18 12:04 Dose: 17 gm Results - Vital Signs Recent Vital Signs: Last Vital Signs Temp 97.8 F 08/10/18 12:00 Pulse 120 H 08/10/18 12:00 Resp 20 08/10/18 12:00 BP 111/71 08/10/18 12:00 Pulse Ox 95 08/10/18 06:00 - Labs Result Diagrams: 08/10/18 12:15 08/10/18 05:00 Labs: Laboratory Results - last 24 hr 08/09/18 08/09/18 08/09/18 23:27 23:27 23:27 WBC 12.5 H RBC 4.38 Hgb 13.1 L Hct 39.8 L MCV 90.9 MCH 29.9 MCHC 32.9 RDW 14.5 Plt Count 192 MPV 11.8 H Neut % (Auto) 77.3 H Lymph % (Auto) 15.3 L [place] % (Auto) 4.2 Eos % (Auto) 2.8 Baso % (Auto) 0.4 Lymph # (Auto) 1.9 [place] # (Auto) 0.5 Eos # (Auto) 0.4 Baso # (Auto) 0.05 Absolute Neuts (auto) 9.68 H PT 14.3 H INR 1.29 APTT 32.8 pO2 VBG pH VBG pCO2 VBG HCO3 VBG Total CO2 VBG O2 Sat (Calc) VBG Base Excess VBG Potassium Glucose Lactate FiO2 Crit Value Called To Crit Value Called By Blood Gas Notified Time Sodium 142 Potassium 5.0 Chloride 106 Carbon Dioxide 26 Anion Gap 15 BUN 34 H Creatinine 0.7 L Est GFR ( Amer) > 60 Est GFR (Non-Af Amer) > 60 POC Glucose (mg/dL) Random Glucose 260 H Hemoglobin A1c Calcium 9.6 Phosphorus 2.7 Magnesium 1.6 L Total Bilirubin 0.9 AST 34 ALT 29 Alkaline Phosphatase 54 Lactate Dehydrogenase Total Creatine Kinase Troponin I Total Protein 7.6 Albumin 4.2 Globulin 3.4 Albumin/Globulin Ratio 1.3 Lipase 197 Procalcitonin Venous Blood Potassium Urine Color Urine Appearance Urine pH Ur Specific [place] Urine Protein Urine Glucose (UA) Urine Ketones Urine Blood Urine Nitrate Urine Bilirubin Urine Urobilinogen Ur Leukocyte Esterase Blood Type Blood Type Confirm Antibody Screen BBK History Checked 08/09/18 08/10/18 08/10/18 23:48 00:13 00:25 WBC RBC Hgb Hct MCV MCH MCHC RDW Plt Count MPV Neut % (Auto) Lymph % (Auto) [place] % (Auto) Eos % (Auto) Baso % (Auto) Lymph # (Auto) [place] # (Auto) Eos # (Auto) Baso # (Auto) Absolute Neuts (auto) PT INR APTT pO2 46 VBG pH 7.38 VBG pCO2 48.0 VBG HCO3 28.4 H VBG Total CO2 29.9 H VBG O2 Sat (Calc) 82.1 H VBG Base Excess 2.5 H VBG Potassium 4.6 Glucose 221 H Lactate 2.7 H FiO2 21.0 Crit Value Called To Tammie rn Crit Value Called By Helen Blood Gas Notified Time 35 Sodium 141.0 Potassium Chloride 106.0 Carbon Dioxide Anion Gap BUN Creatinine Est GFR ( Amer) Est GFR (Non-Af Amer) POC Glucose (mg/dL) Random Glucose Hemoglobin A1c Calcium Phosphorus Magnesium Total Bilirubin AST ALT Alkaline Phosphatase Lactate Dehydrogenase 531 Total Creatine Kinase 142 Troponin I < 0.01 Total Protein Albumin Globulin Albumin/Globulin Ratio Lipase Procalcitonin Venous Blood Potassium 4.6 Urine Color Urine Appearance Urine pH Ur Specific [place] Urine Protein Urine Glucose (UA) Urine Ketones Urine Blood Urine Nitrate Urine Bilirubin Urine Urobilinogen Ur Leukocyte Esterase Blood Type A POSITIVE Blood Type Confirm Antibody Screen Negative BBK History Checked No verified bt 08/10/18 08/10/18 08/10/18 00:30 01:05 04:00 WBC RBC Hgb Hct MCV MCH MCHC RDW Plt Count MPV Neut % (Auto) Lymph % (Auto) [place] % (Auto) Eos % (Auto) Baso % (Auto) Lymph # (Auto) [place] # (Auto) Eos # (Auto) Baso # (Auto) Absolute Neuts (auto) PT INR APTT pO2 58 H VBG pH 7.39 VBG pCO2 45.0 VBG HCO3 27.2 VBG Total CO2 28.6 H VBG O2 Sat (Calc) 90.5 H VBG Base Excess 1.7 VBG Potassium 4.5 Glucose 184 H Lactate 1.4 FiO2 21.0 Crit Value Called To Crit Value Called By Blood Gas Notified Time Sodium 142.0 Potassium Chloride 113.0 H Carbon Dioxide Anion Gap BUN Creatinine Est GFR ( Amer) Est GFR (Non-Af Amer) POC Glucose (mg/dL) Random Glucose Hemoglobin A1c Calcium Phosphorus Magnesium Total Bilirubin AST ALT Alkaline Phosphatase Lactate Dehydrogenase Total Creatine Kinase Troponin I Total Protein Albumin Globulin Albumin/Globulin Ratio Lipase Procalcitonin Venous Blood Potassium 4.5 Urine Color Yellow Urine Appearance Clear Urine pH 6.0 Ur Specific [place] 1.010 Urine Protein Negative Urine Glucose (UA) 100 H Urine Ketones 15 H Urine Blood Negative Urine Nitrate Negative Urine Bilirubin Negative Urine Urobilinogen 0.2 Ur Leukocyte Esterase Negative Blood Type Blood Type Confirm A POSITIVE Antibody Screen BBK History Checked 08/10/18 08/10/18 08/10/18 05:00 05:00 06:20 WBC 9.3 D RBC 3.66 Hgb 11.0 L D Hct 32.6 L MCV 89.1 MCH 30.1 MCHC 33.7 RDW 14.5 Plt Count 157 MPV 10.9 Neut % (Auto) 55.8 Lymph % (Auto) 30.7 [place] % (Auto) 8.8 H Eos % (Auto) 4.4 Baso % (Auto) 0.3 Lymph # (Auto) 2.9 [place] # (Auto) 0.8 H Eos # (Auto) 0.4 Baso # (Auto) 0.03 Absolute Neuts (auto) 5.21 PT INR APTT pO2 VBG pH VBG pCO2 VBG HCO3 VBG Total CO2 VBG O2 Sat (Calc) VBG Base Excess VBG Potassium Glucose Lactate FiO2 Crit Value Called To Crit Value Called By Blood Gas Notified Time Sodium 142 Potassium 4.5 Chloride 110 H Carbon Dioxide 24 Anion Gap 13 BUN 32 H Creatinine 0.7 L Est GFR ( Amer) > 60 Est GFR (Non-Af Amer) > 60 POC Glucose (mg/dL) Random Glucose 167 H Hemoglobin A1c 7.2 H Calcium 8.3 L Phosphorus 2.6 Magnesium 1.6 L Total Bilirubin 0.5 AST 23 ALT 29 Alkaline Phosphatase 43 Lactate Dehydrogenase Total Creatine Kinase Troponin I Total Protein 5.9 Albumin 3.2 Globulin 2.7 Albumin/Globulin Ratio 1.2 Lipase Procalcitonin Venous Blood Potassium Urine Color Urine Appearance Urine pH Ur Specific [place] Urine Protein Urine Glucose (UA) Urine Ketones Urine Blood Urine Nitrate Urine Bilirubin Urine Urobilinogen Ur Leukocyte Esterase Blood Type Blood Type Confirm Antibody Screen BBK History Checked 08/10/18 08/10/18 08/10/18 07:00 07:48 10:47 WBC RBC Hgb Hct MCV MCH MCHC RDW Plt Count MPV Neut % (Auto) Lymph % (Auto) [place] % (Auto) Eos % (Auto) Baso % (Auto) Lymph # (Auto) [place] # (Auto) Eos # (Auto) Baso # (Auto) Absolute Neuts (auto) PT INR APTT pO2 VBG pH VBG pCO2 VBG HCO3 VBG Total CO2 VBG O2 Sat (Calc) VBG Base Excess VBG Potassium Glucose Lactate FiO2 Crit Value Called To Crit Value Called By Blood Gas Notified Time Sodium Potassium Chloride Carbon Dioxide Anion Gap BUN Creatinine Est GFR ( Amer) Est GFR (Non-Af Amer) POC Glucose (mg/dL) 152 H 205 H Random Glucose Hemoglobin A1c Calcium Phosphorus Magnesium Total Bilirubin AST ALT Alkaline Phosphatase Lactate Dehydrogenase Total Creatine Kinase Troponin I Total Protein Albumin Globulin Albumin/Globulin Ratio Lipase Procalcitonin < 0.05 L Venous Blood Potassium Urine Color Urine Appearance Urine pH Ur Specific [place] Urine Protein Urine Glucose (UA) Urine Ketones Urine Blood Urine Nitrate Urine Bilirubin Urine Urobilinogen Ur Leukocyte Esterase Blood Type Blood Type Confirm Antibody Screen BBK History Checked 08/10/18 12:15 WBC RBC Hgb 11.1 L Hct 34.0 L MCV MCH MCHC RDW Plt Count MPV Neut % (Auto) Lymph % (Auto) [place] % (Auto) Eos % (Auto) Baso % (Auto) Lymph # (Auto) [place] # (Auto) Eos # (Auto) Baso # (Auto) Absolute Neuts (auto) PT INR APTT pO2 VBG pH VBG pCO2 VBG HCO3 VBG Total CO2 VBG O2 Sat (Calc) VBG Base Excess VBG Potassium Glucose Lactate FiO2 Crit Value Called To Crit Value Called By Blood Gas Notified Time Sodium Potassium Chloride Carbon Dioxide Anion Gap BUN Creatinine Est GFR ( Amer) Est GFR (Non-Af Amer) POC Glucose (mg/dL) Random Glucose Hemoglobin A1c Calcium Phosphorus Magnesium Total Bilirubin AST ALT Alkaline Phosphatase Lactate Dehydrogenase Total Creatine Kinase Troponin I Total Protein Albumin Globulin Albumin/Globulin Ratio Lipase Procalcitonin Venous Blood Potassium Urine Color Urine Appearance Urine pH Ur Specific [place] Urine Protein Urine Glucose (UA) Urine Ketones Urine Blood Urine Nitrate Urine Bilirubin Urine Urobilinogen Ur Leukocyte Esterase Blood Type Blood Type Confirm Antibody Screen BBK History Checked Attending/Attestation - Attestation I have personally seen and examined this patient.: Yes I have fully participated in the care of the patient.: Yes I have reviewed all pertinent clinical information: Yes Notes (Text): 08/10/18 15:28 I have seen and examined the pt with the GI fellow. 62 yo M with DM and gout taking ibuprofen and indomethacin as needed and recent constipation p/w two episodes of emesis with red liquid (possibly related to red wine and soda that he ingested beforehand) and two episodes of dark stool. Notes increased constipation recently. States he took ibuprofen 800 mg po x 2 and Indomethacin 50 mg x 1 two days last wk. Had an episode of hard stool a wk ago with some blood tinged brown stool. Since admission, no further BMs and feels well. Slightly downtrending Hb, but suspect hemodilutional. Overall, appears clinically well w/o evidence of GIB. CT abd/pelvis normal. Recommend Protonix 40 mg po daily and adding Miralax 17 gm po daily to help with underlying constipation. Stable for d/c from gi standpoint.
--- NOTE | 2018-08-10 13:37 | CP.PCM.DIS ---
<Flor Emery - Last Filed: 08/10/18 14:53> Provider - Provider Date of Admission: 08/10/18 01:07 Attending physician: Patience Figueroa DO Consults: 08/10/18 06:32 Gastroenterology Consult Routine Comment: Consulting Provider: Migue Bolaños Consulting Physician: Migue Bolaños Reason for Consult: black tarry stools Time Spent in preparation of Discharge (in minutes): 35 Hospital Course - Lab Results Lab Results: Most Recent Lab Values WBC 9.3 10^3/uL (4.5-11.0) D 08/10/18 06:20 RBC 3.66 10^6/uL (3.5-6.1) 08/10/18 06:20 Hgb 11.1 g/dL (14.0-18.0) L 08/10/18 12:15 Hct 34.0 % (42.0-52.0) L 08/10/18 12:15 MCV 89.1 fl (80.0-105.0) 08/10/18 06:20 MCH 30.1 pg (25.0-35.0) 08/10/18 06:20 MCHC 33.7 g/dl (31.0-37.0) 08/10/18 06:20 RDW 14.5 % (11.5-14.5) 08/10/18 06:20 Plt Count 157 10^3/uL (120.0-450.0) 08/10/18 06:20 MPV 10.9 fl (7.0-11.0) 08/10/18 06:20 Neut % (Auto) 55.8 % (50.0-68.0) 08/10/18 06:20 Lymph % (Auto) 30.7 % (22.0-35.0) 08/10/18 06:20 Turner % (Auto) 8.8 % (1.0-6.0) H 08/10/18 06:20 Eos % (Auto) 4.4 % (1.5-5.0) 08/10/18 06:20 Baso % (Auto) 0.3 % (0.0-3.0) 08/10/18 06:20 Lymph # (Auto) 2.9 (1.2-3.4) 08/10/18 06:20 Turner # (Auto) 0.8 (0.1-0.6) H 08/10/18 06:20 Eos # (Auto) 0.4 (0.0-0.7) 08/10/18 06:20 Baso # (Auto) 0.03 K/mm3 (0.0-2.0) 08/10/18 06:20 Absolute Neuts (auto) 5.21 (1.4-6.5) 08/10/18 06:20 PT 14.3 SECONDS (9.4-12.5) H 08/09/18 23:27 INR 1.29 08/09/18 23:27 APTT 32.8 Seconds (26.9-38.3) 08/09/18 23:27 pO2 58 mm/Hg (30-55) H 08/10/18 04:00 VBG pH 7.39 (7.32-7.43) 08/10/18 04:00 VBG pCO2 45.0 (40-60) 08/10/18 04:00 VBG HCO3 27.2 mmol/l (21-28) 08/10/18 04:00 VBG Total CO2 28.6 mmol.L (22-28) H 08/10/18 04:00 VBG O2 Sat (Calc) 90.5 % (40-65) H 08/10/18 04:00 VBG Base Excess 1.7 mmol/L (0.0-2.0) 08/10/18 04:00 VBG Potassium 4.5 mmol/L (3.6-5.2) 08/10/18 04:00 Sodium 142.0 mmol/L (132-148) 08/10/18 04:00 Chloride 113.0 mmol/L (98-107) H 08/10/18 04:00 Glucose 184 mg/dl (75-110) H 08/10/18 04:00 Lactate 1.4 mmol/L (0.7-2.1) 08/10/18 04:00 FiO2 21.0 % 08/10/18 04:00 Crit Value Called To Tammie gonzalez 08/10/18 00:25 Crit Value Called By Helen 08/10/18 00:25 Blood Gas Notified Time 35 08/10/18 00:25 Sodium 142 mmol/L (132-148) 08/10/18 05:00 Potassium 4.5 mmol/L (3.6-5.0) 08/10/18 05:00 Chloride 110 mmol/L (98-107) H 08/10/18 05:00 Carbon Dioxide 24 mmol/L (21-33) 08/10/18 05:00 Anion Gap 13 (10-20) 08/10/18 05:00 BUN 32 mg/dL (7-21) H 08/10/18 05:00 Creatinine 0.7 mg/dl (0.8-1.5) L 08/10/18 05:00 Est GFR ( Amer) > 60 08/10/18 05:00 Est GFR (Non-Af Amer) > 60 08/10/18 05:00 POC Glucose (mg/dL) 205 mg/dL (65-110) H 08/10/18 10:47 Random Glucose 167 mg/dL (70-110) H 08/10/18 05:00 Hemoglobin A1c 7.2 % (4.2-6.5) H 08/10/18 05:00 Calcium 8.3 mg/dL (8.4-10.5) L 08/10/18 05:00 Phosphorus 2.6 mg/dL (2.5-4.5) 08/10/18 05:00 Magnesium 1.6 mg/dL (1.7-2.2) L 08/10/18 05:00 Total Bilirubin 0.5 mg/dL (0.2-1.3) 08/10/18 05:00 AST 23 U/L (17-59) 08/10/18 05:00 ALT 29 U/L (7-56) 08/10/18 05:00 Alkaline Phosphatase 43 U/L (38-126) 08/10/18 05:00 Lactate Dehydrogenase 531 U/L (333-699) 08/10/18 00:13 Total Creatine Kinase 142 U/L (35-230) 08/10/18 00:13 Troponin I < 0.01 ng/mL 08/10/18 00:13 Total Protein 5.9 g/dL (5.8-8.3) 08/10/18 05:00 Albumin 3.2 g/dL (3.0-4.8) 08/10/18 05:00 Globulin 2.7 gm/dL 08/10/18 05:00 Albumin/Globulin Ratio 1.2 (1.1-1.8) 08/10/18 05:00 Lipase 197 U/L (23-300) 08/09/18 23:27 Procalcitonin < 0.05 NG/ML (0.19-0.49) L 08/10/18 07:00 Venous Blood Potassium 4.5 mmol/L (3.6-5.2) 08/10/18 04:00 Urine Color Yellow (YELLOW) 08/10/18 01:05 Urine Appearance Clear (CLEAR) 08/10/18 01:05 Urine pH 6.0 (4.7-8.0) 08/10/18 01:05 Ur Specific [place] 1.010 (1.005-1.035) 08/10/18 01:05 Urine Protein Negative mg/dL (<30 mg/dL) 08/10/18 01:05 Urine Glucose (UA) 100 mg/dL (NEGATIVE) H 08/10/18 01:05 Urine Ketones 15 mg/dL (NEGATIVE) H 08/10/18 01:05 Urine Blood Negative (NEGATIVE) 08/10/18 01:05 Urine Nitrate Negative (NEGATIVE) 08/10/18 01:05 Urine Bilirubin Negative (NEGATIVE) 08/10/18 01:05 Urine Urobilinogen 0.2 E.U./dL (<1 E.U./dL) 08/10/18 01:05 Ur Leukocyte Esterase Negative Erika/uL (NEGATIVE) 08/10/18 01:05 Blood Type A POSITIVE 08/09/18 23:48 Blood Type Confirm A POSITIVE 08/10/18 00:30 Antibody Screen Negative 08/09/18 23:48 BBK History Checked No verified bt 08/09/18 23:48 Physical Exam - Constitutional Appears: Non-toxic, No Acute Distress - Head Exam Head Exam: ATRAUMATIC, NORMAL INSPECTION - Eye Exam Eye Exam: EOMI Pupil Exam: PERRL - ENT Exam ENT Exam: Mucous Membranes Dry - Respiratory Exam Respiratory Exam: Clear to Auscultation Bilateral. absent: Accessory Muscle Use, Wheezes, Respiratory Distress - Cardiovascular Exam Cardiovascular Exam: Tachycardia, REGULAR RHYTHM, +S1, +S2 - GI/Abdominal Exam GI & Abdominal Exam: Normal Bowel Sounds, Soft. absent: Firm, Guarding, Rebound, Rigid, Tenderness - Extremities Exam Extremities exam: Positive for: normal inspection, pedal pulses present. Negative for: calf tenderness, tenderness - Back Exam Back exam: NORMAL INSPECTION - Neurological Exam Neurological exam: Alert, CN II-XII Intact, Oriented x3 - Skin Skin Exam: Normal Color, Warm - Hospital Course Hospital Course: Upon admission, 62 year old male with PMH of arthritis, gout and type II DM presenting to the hospital for 2 episodes of vomiting and black tarry stool today afternoon. Patient states he was drinking soda and wine, and shortly after returning home he had a black tarry bowel movement. He then proceeded to self induce vomit after which vomited twice. He denies every having a black tarry bowel movement in the past. He states his bowel movements were regular and normal prior to earlier episode. He denies any other complaints at this time. He reports having a colonoscopy in 2017 and is unsure of the results. During hospital course, patient admitted for SIRS with unknown source due to tachycardia and slightly elevated WBC and empirically started on broad spectrum antibiotics with initial lactae of 2.7. Guaiac was noted to be positive for b lood in the ED. Patient was started on IV protonic q12 and H/H q4. Initial hemoglobin noted to be 13.1, then 11.0 and most recently 11.1. Patient was asymptomatic throughout hospital course, slept comfortably and had no problem tolerating his diet. Patient's WBC count normalized the following day and procalc was normal. Patient was given 4L of NS and his magnesium was repleted. CTAP was reviewed by GI hydroponics worker and patient was deemed safe for discharge home by GI team on protonix and miralax. Patient also given augmentin BID for 7 days for bronchiectatic changes on CT scan. All of patient's questions were answered to satisfaction. Patient agreed to follow up with primary doctor and GI doctor within one week of discharge. Discharge Plan - Discharge Medications Prescriptions: Amoxicillin/Clavulanate [Augmentin 875 MG-125 MG] 1 tab PO BID 7 Days #14 tab Pantoprazole [Protonix] 40 mg PO DAILY #30 ect Polyethylene Glycol 3350 [Miralax] 17 gm PO DAILY PRN 14 Days #7 ml PRN Reason: Constipation - Follow Up Plan Condition: GUARDED Disposition: HOME/ ROUTINE Instructions: Gastrointestinal Bleeding (DC), Sepsis, Adult (DC) Additional Instructions: Please follow up with your PMD, Dr. Pringle within 5-7 days of discharge. Please follow up with your rheumatologist, Dr. Anderson within 5-7 days of discharge. Please start taking protonix 40mg daily and miralax as needed for constipation. Please take augmentin (antibiotic) twice daily for 7 days. Please continue taking your medications as previously prescribed. Please obtain refills from your primary doctor. Please return to the ED for any new or worsening symptoms. Referrals: lEeno Pringle MD [Family Provider] - Barbara Anderson MD [Staff Provider] - <Philippe Newberry - Last Filed: 08/10/18 15:13> Provider - Provider Date of Admission: 08/10/18 01:07 Attending physician: Patience Figueroa DO Consults: 08/10/18 06:32 Gastroenterology Consult Routine Comment: Consulting Provider: Migue Bolaños Consulting Physician: Migue Bolaños Reason for Consult: black tarry stools Hospital Course - Lab Results Lab Results: Most Recent Lab Values WBC 9.3 10^3/uL (4.5-11.0) D 08/10/18 06:20 RBC 3.66 10^6/uL (3.5-6.1) 08/10/18 06:20 Hgb 11.1 g/dL (14.0-18.0) L 08/10/18 12:15 Hct 34.0 % (42.0-52.0) L 08/10/18 12:15 MCV 89.1 fl (80.0-105.0) 08/10/18 06:20 MCH 30.1 pg (25.0-35.0) 08/10/18 06:20 MCHC 33.7 g/dl (31.0-37.0) 08/10/18 06:20 RDW 14.5 % (11.5-14.5) 08/10/18 06:20 Plt Count 157 10^3/uL (120.0-450.0) 08/10/18 06:20 MPV 10.9 fl (7.0-11.0) 08/10/18 06:20 Neut % (Auto) 55.8 % (50.0-68.0) 08/10/18 06:20 Lymph % (Auto) 30.7 % (22.0-35.0) 08/10/18 06:20 Turner % (Auto) 8.8 % (1.0-6.0) H 08/10/18 06:20 Eos % (Auto) 4.4 % (1.5-5.0) 08/10/18 06:20 Baso % (Auto) 0.3 % (0.0-3.0) 08/10/18 06:20 Lymph # (Auto) 2.9 (1.2-3.4) 08/10/18 06:20 Turner # (Auto) 0.8 (0.1-0.6) H 08/10/18 06:20 Eos # (Auto) 0.4 (0.0-0.7) 08/10/18 06:20 Baso # (Auto) 0.03 K/mm3 (0.0-2.0) 08/10/18 06:20 Absolute Neuts (auto) 5.21 (1.4-6.5) 08/10/18 06:20 PT 14.3 SECONDS (9.4-12.5) H 08/09/18 23:27 INR 1.29 08/09/18 23:27 APTT 32.8 Seconds (26.9-38.3) 08/09/18 23:27 pO2 58 mm/Hg (30-55) H 08/10/18 04:00 VBG pH 7.39 (7.32-7.43) 08/10/18 04:00 VBG pCO2 45.0 (40-60) 08/10/18 04:00 VBG HCO3 27.2 mmol/l (21-28) 08/10/18 04:00 VBG Total CO2 28.6 mmol.L (22-28) H 08/10/18 04:00 VBG O2 Sat (Calc) 90.5 % (40-65) H 08/10/18 04:00 VBG Base Excess 1.7 mmol/L (0.0-2.0) 08/10/18 04:00 VBG Potassium 4.5 mmol/L (3.6-5.2) 08/10/18 04:00 Sodium 142.0 mmol/L (132-148) 08/10/18 04:00 Chloride 113.0 mmol/L (98-107) H 08/10/18 04:00 Glucose 184 mg/dl (75-110) H 08/10/18 04:00 Lactate 1.4 mmol/L (0.7-2.1) 08/10/18 04:00 FiO2 21.0 % 08/10/18 04:00 Crit Value Called To Tammie gonzalez 08/10/18 00:25 Crit Value Called By Helen 08/10/18 00:25 Blood Gas Notified Time 35 08/10/18 00:25 Sodium 142 mmol/L (132-148) 08/10/18 05:00 Potassium 4.5 mmol/L (3.6-5.0) 08/10/18 05:00 Chloride 110 mmol/L (98-107) H 08/10/18 05:00 Carbon Dioxide 24 mmol/L (21-33) 08/10/18 05:00 Anion Gap 13 (10-20) 08/10/18 05:00 BUN 32 mg/dL (7-21) H 08/10/18 05:00 Creatinine 0.7 mg/dl (0.8-1.5) L 08/10/18 05:00 Est GFR ( Amer) > 60 08/10/18 05:00 Est GFR (Non-Af Amer) > 60 08/10/18 05:00 POC Glucose (mg/dL) 205 mg/dL (65-110) H 08/10/18 10:47 Random Glucose 167 mg/dL (70-110) H 08/10/18 05:00 Hemoglobin A1c 7.2 % (4.2-6.5) H 08/10/18 05:00 Calcium 8.3 mg/dL (8.4-10.5) L 08/10/18 05:00 Phosphorus 2.6 mg/dL (2.5-4.5) 08/10/18 05:00 Magnesium 1.6 mg/dL (1.7-2.2) L 08/10/18 05:00 Total Bilirubin 0.5 mg/dL (0.2-1.3) 08/10/18 05:00 AST 23 U/L (17-59) 08/10/18 05:00 ALT 29 U/L (7-56) 08/10/18 05:00 Alkaline Phosphatase 43 U/L (38-126) 08/10/18 05:00 Lactate Dehydrogenase 531 U/L (333-699) 08/10/18 00:13 Total Creatine Kinase 142 U/L (35-230) 08/10/18 00:13 Troponin I < 0.01 ng/mL 08/10/18 00:13 Total Protein 5.9 g/dL (5.8-8.3) 08/10/18 05:00 Albumin 3.2 g/dL (3.0-4.8) 08/10/18 05:00 Globulin 2.7 gm/dL 08/10/18 05:00 Albumin/Globulin Ratio 1.2 (1.1-1.8) 08/10/18 05:00 Lipase 197 U/L (23-300) 08/09/18 23:27 Procalcitonin < 0.05 NG/ML (0.19-0.49) L 08/10/18 07:00 Venous Blood Potassium 4.5 mmol/L (3.6-5.2) 08/10/18 04:00 Urine Color Yellow (YELLOW) 08/10/18 01:05 Urine Appearance Clear (CLEAR) 08/10/18 01:05 Urine pH 6.0 (4.7-8.0) 08/10/18 01:05 Ur Specific [place] 1.010 (1.005-1.035) 08/10/18 01:05 Urine Protein Negative mg/dL (<30 mg/dL) 08/10/18 01:05 Urine Glucose (UA) 100 mg/dL (NEGATIVE) H 08/10/18 01:05 Urine Ketones 15 mg/dL (NEGATIVE) H 08/10/18 01:05 Urine Blood Negative (NEGATIVE) 08/10/18 01:05 Urine Nitrate Negative (NEGATIVE) 08/10/18 01:05 Urine Bilirubin Negative (NEGATIVE) 08/10/18 01:05 Urine Urobilinogen 0.2 E.U./dL (<1 E.U./dL) 08/10/18 01:05 Ur Leukocyte Esterase Negative Erika/uL (NEGATIVE) 08/10/18 01:05 Blood Type A POSITIVE 08/09/18 23:48 Blood Type Confirm A POSITIVE 08/10/18 00:30 Antibody Screen Negative 08/09/18 23:48 BBK History Checked No verified bt 08/09/18 23:48 Attending/Attestation - Attestation I have personally seen and examined this patient.: Yes I have fully participated in the care of the patient.: Yes I have reviewed all pertinent clinical information, including history, physical exam and plan: Yes Notes (Text): 08/10/18 15:10 Attending note; Patient seen and examined with resident. Patient is alert and awake. Denies any abdominal pain. Denies any nausea, vomiting. Denies any bowel movement or diarrhea today. Denies any hematemesis, melena. Denies any fevers, chills, cough. Patient is a 62 year old male with PMH of arthritis, gout and type II DM presenting to the hospital for 2 episodes of vomiting and black tarry stool today afternoon. Patient states he was drinking soda and wine, and shortly after returning home he had a black tarry bowel movement. 1. Black tarry stool; currently no bleeding noted. Hemoglobin is stable. GI evaluation appreciated. CT abdomen and pelvis is normal. Patient had EGD and colonoscopy few years ago. Patient is due for colonoscopy in few months. Currently tolerating diet. Patient will be discharged home today with PPI and MiraLAX as per GI recommendations. 2. Bronchiectasis changes in CT scan; patient had mildly elevated white count which is resolved. Will discharge home with Augmentin. Advised to follow-up with PMD Dr. Pringle in 3 to 5 days. 08/10/18 15:13
--- NOTE | 2018-08-10 13:54 | CT ---
Date of service: 08/10/2018 PROCEDURE: CT Abdomen and Pelvis without intravenous contrast HISTORY: abdo pain/gi bleed COMPARISON: None. TECHNIQUE: Contiguous images were obtained from the domes of the diaphragms to the upper thighs without the administration of intravenous contrast. Oral contrast was not administered. Radiation dose: Total exam DLP = 879.32 mGy-cm. This CT exam was performed using one or more of the following dose reduction techniques: Automated exposure control, adjustment of the mA and/or kV according to patient size, and/or use of iterative reconstruction technique. FINDINGS: LOWER THORAX: Bibasilar bronchiectasis and fibrotic changes. No focal consolidation. Cardiomegaly. Coronary arterial and valvular calcifications. LIVER: Unremarkable. No gross lesion or ductal dilatation. GALLBLADDER AND BILE DUCTS: Unremarkable. PANCREAS: Unremarkable. No gross lesion or ductal dilatation. SPLEEN: Unremarkable. ADRENALS: Unremarkable. No mass. KIDNEYS AND URETERS: Nonspecific bilateral perinephric stranding. No hydronephrosis. No solid mass. VASCULATURE: Unremarkable. No aortic aneurysm. Aortic atherosclerotic calcifications. BOWEL: Unremarkable. No obstruction. No gross mural thickening. APPENDIX: Unremarkable. Normal appendix. PERITONEUM: Unremarkable. No free fluid. No free air. LYMPH NODES: Unremarkable. No enlarged lymph nodes. BLADDER: Unremarkable. REPRODUCTIVE: Prostatomegaly. BONES: No acute fracture. OTHER FINDINGS: None. IMPRESSION: No acute abdominal pelvic pathology on this unenhanced examination. Please note, active gastrointestinal hemorrhage cannot be identified on a noncontrast examination and/or in the presence of enteric contrast. Bibasilar bronchiectasis and fibrotic change.
[2018-08-10 14:33] VITALS: BP 111/71; PULSE 120; RESP 20; TEMP 97.8
[2018-08-11] MEDS ORDERED: Pantoprazole 40 mg EC Tab PO SCH (06:00)
== END 2018-08-10 17:18 | disposition home or self-care (01) ==
LOC: EDBD → ED 23:00 → INTOOBSV 08-10 01:07 → MERGE 08-10 01:07 → ERH 08-10 01:07 → 2RNO 08-10 02:27 → UNDODISIN 08-10 17:18
PROVIDERS: ADMIT Hospitalist; ATTEND Hospitalist
DX: R11.2 Nausea with vomiting, unspecified (principal); R19.5 Other fecal abnormalities; J47.9 Bronchiectasis, uncomplicated; R65.10 Systemic inflammatory response syndrome (SIRS) of non-infectious origin without acute organ dysfunction; K59.00 Constipation, unspecified; M10.9 Gout, unspecified; E11.9 Type 2 diabetes mellitus without complications; K64.8 Other hemorrhoids; M19.90 Unspecified osteoarthritis, unspecified site; Z82.3 Family history of stroke; Z86.010 Personal history of colon polyps
CPT/HCPCS: 71045; 74176; 80053; 81003; 82550; 82803; 82948; 83036; 83615; 83690; 83735; 84100; 84145; 84484; 85014; 85018; 85025; 85610; 85730; 86850; 86900; 87040; 87086; 93005; 96374; 99285; C9113; G0378; J2405; J2543; J7030; J7040